=== PATIENT | female | born 1995 | race Caucasian/White ===

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

== ENCOUNTER 2018-08-01 16:24 | Emergency (ER) | payer OTHER ==
[2018-08-01 17:08] LABS: PLATELET COUNT 393 10^3/uL (150-400)
--- NOTE | 2018-08-01 17:23 | EDPHY ---
H & P Time Seen by Provider: 08/01/18 16:34 HPI/ROS: CHIEF COMPLAINT: Abnormal vaginal bleeding HISTORY OF PRESENT ILLNESS: This is a 23-year-old female presents emergency department reporting mid cycle vaginal bleeding with clots. Patient is on oral control pills. She reports having a. At the typical time. She had several days of no vaginal bleeding and then developed recurrent vaginal bleeding with passage of small clots. She is also complaining of some back pain. She is concerned regarding anemia. She has had some lightheadedness but no fainting. No urinary complaints, fevers, chills, or shortness of breath. Occasional cough. I note that the triage note reports her reason for admission is pneumonia, anemia, and fever, however the patient reports no symptoms to me suggestive of pneumonia. She denies a fever. REVIEW OF SYSTEMS: A comprehensive 10 system review of systems was reviewed and is otherwise negative aside from elements mentioned in the history of present illness and medical decision making. PAST MEDICAL HISTORY: Patient denies. SOCIAL HISTORY: Here with her . Nonsmoker. VITAL SIGNS Reviewed by me. No tachycardia or hypotension. GENERAL: Well-developed, well-nourished, resting comfortably in no respiratory distress. HEENT: Atraumatic. Eyes: No icterus, no injection. Mouth: moist mucous membranes. No erythema or lesions. Neck: supple with no adenopathy. LUNGS: Clear to auscultation bilaterally, no wheezes, rhonchi or rales. CARDIAC: Regular rate and rhythm, no rubs, murmurs or gallops. ABDOMEN: Soft, very mild tenderness to palpation right and left adnexal regions with no guarding or rebound. BACK: No CVA tenderness. EXTREMITIES: No trauma. No edema. Range of motion is normal throughout. NEURO: Alert and oriented, grossly nonfocal. SKIN: Warm and dry, no rash. PSYCHIATRIC: Normal mentation, no agitation. Smoking Status: Never smoked Constitutional: Initial Vital Signs Temperature (C) 37.0 C 08/01/18 16:27 Heart Rate 77 08/01/18 16:27 Respiratory Rate 16 08/01/18 16:27 Blood Pressure 125/79 H 08/01/18 16:27 O2 Sat (%) 99 08/01/18 16:27 O2 Delivery Mode Room Air Allergies/Adverse Reactions: No Known Allergies Allergy (Verified 08/01/18 16:27) Home Medications: Medication Instructions Recorded Ibuprofen [Motrin (*)] 800 mg PO Q6 #15 tab 11/11/15 Ciprofloxacin 07/23/16 Ortho Tri-Cyclen 28 Tablet 07/23/16 Medical Decision Making - Diagnostics Imaging Results: Impression: 1. Normal anteverted uterus. No uterine leiomyoma or discernible polyp. 2. Normal ovaries. Findings discussed with emergency department physician, Cecelia Engel MD on August 01, 2018 at 1819 hours. Dictated By: Otoniel Fuchs MD Imaging: Discussed imaging studies w/ scallop raker Radiologist ED Course/Re-evaluation: test is negative. CBC is normal. Pelvic ultrasound demonstrates no cause of the patient's abnormal vaginal bleeding. Patient denies any vaginal trauma or traumatic intercourse or unwanted intercourse during confidential history and examination. Patient was instructed regarding ibuprofen for anti prostaglandin effects, as well as for pain control. She was given referral to follow up with her OBGYN or her primary care physician. Differential Diagnosis: Differential diagnosis of the patient's vaginal bleeding includes dysfunctional uterine bleeding, threatened miscarriage, spontaneous miscarriage, incomplete miscarriage, ectopic , trauma, cervicitis, ovarian cysts, uterine fibroids, uterine cancer, cervical cancer, and infection. - Data Points Laboratory Results: Laboratory Results 08/01/18 16:45 08/01/18 16:45 Medications Given: Discontinued Medications Ketorolac Tromethamine (Toradol) 15 mg IVP ONCE ONE Stop: 08/01/18 18:25 Last Admin: 08/01/18 18:36 Dose: 15 mg Departure - Departure Disposition: Home, Routine, Self-Care Clinical Impression: Dysfunctional uterine bleeding Condition: Fair Instructions: Dysfunctional Uterine Bleeding (ED) Additional Instructions: Ibuprofen 600 mg on a regular basis for pain as well as for anti prostaglandin affects. This may help control the bleeding. Follow up with her primary care physician as soon as possible for re- examination. Continue to take the control pills as directed. Referrals: SUNITHA ROSARIO [Primary Care Provider] - As per Instructions Kay Mantilla DO [Doctor of Osteopathy] -
[2018-08-01 17:48] VITALS: BP 119/77
[2018-08-01] MEDS ORDERED: KETOROLAC 15 MG/1 ML SDV IVP ONE (18:24)
== END 2018-08-01 18:37 | disposition home or self-care (01) ==
LOC: UNDOADMOB 17:15
DX: N93.8 Other specified abnormal uterine and vaginal bleeding (principal); Z79.899 Other long term (current) drug therapy
CPT/HCPCS: 96374; J1885